=== PATIENT | male | born 1975 | race Caucasian/White ===

== ENCOUNTER 2016-11-11 20:12 | Inpatient (IN) | payer MEDICARE, MEDICAID ==
[~2016-11-11] VITALS: Ht 188 cm; Wt 77.9 kg
--- NOTE | ~2016-11-11 | HP ---
PATIENT'S NAME: MAUDE VALENZUELA [facility] AGE: 41 Y [address] ROOM: [place] [address] LOCATION: GPCU ADMIT DATE: 11/11/2016 History & Physical DISCHARGE DATE: FAMILY PHYSICIAN: Jian Marte MD ATTENDING PHYSICIAN: Andrzej Driver CHIEF COMPLAINT: Shortness of breath. HISTORY OF PRESENT ILLNESS: The patient is a 41-year-old quadriplegic who [facility] with complaints of respiratory illness and difficulty with lying back due to shortness of breath. Has been sleeping upright in his wheelchair for the last 3-4 nights. He did present to the clinic yesterday and was diagnosed with respiratory infection, was given Levaquin and albuterol nebulizers. He normally does not have respiratory problems, more urinary symptoms. PAST SURGICAL HISTORY: Includes bladder surgery, neck surgery, temporary tracheostomy. He is a quadriplegic secondary to a wrestling accident in his teenage years. CURRENT MEDICATIONS: Include baclofen 10 mg t.i.d., calcium 500 mg 1 tablet daily, cranberry 400 mg daily, Ditropan XL 500 mg twice daily, Macrodantin 25 mg 2 capsules daily, multivitamin daily, vitamin C 500 mg daily, vitamin E 1000 units daily. ALLERGIES: NO KNOWN MEDICAL ALLERGIES. FAMILY HISTORY: Not significant. SOCIAL HISTORY: Occasional alcohol use. Does drink some caffeine. He is a 2-year college graduate. He is single. REVIEW OF SYSTEMS: CONSTITUTIONAL: Denies any fever or chills. HEENT: He has occasional cough. CARDIOVASCULAR: He is dyspneic and short of breath when lying back, but sitting up does okay and does have a cough. GI: No nausea, vomiting, diarrhea. PHYSICAL EXAMINATION: VITAL SIGNS: Blood pressure 141/75, pulse of 89, respirations 24, O2 saturation 95% on room air, temperature 97.7. GENERAL: This is an alert male in no acute distress. On my exam, he is actually able to lean back in his wheelchair a little bit more than he did PATIENT'S NAME: MAUDE VALENZUELA [facility] AGE: 41 Y [address] ROOM: [place] [address] LOCATION: GPCU ADMIT DATE: 11/11/2016 History & Physical DISCHARGE DATE: FAMILY PHYSICIAN: Jian Marte MD ATTENDING PHYSICIAN: Andrzej Driver earlier since the steroids have been given. HEENT: Mouth had moist mucous membranes. NECK: Supple with no lymphadenopathy. HEART: Regular. A questionable murmur and extra click. LUNGS: Decreased air movement and breath sounds throughout, does have occasional wheeze. : Exam is not done. EXTREMITIES: Have minimal edema. SKIN: Again, the patient was examined in his chair, so I did not examine his skin. DIAGNOSTIC DATA: EKG does show a sinus rhythm, questionable some T-wave changes laterally. Serial EKGs were done which continued showing these changed. It was faxed to Dr. Tyler who feels like there is some nonspecific T-wave changes, but nothing acute at this point. CBC: White count of 4300 with a normal differential. Lactate of 1.1. D- dimer of 0.21. CPK of 255, CK-MB 12.9, troponin I less than 0.04. ProBNP of 49. CMS with a sodium of 128. The rest is stable. Procalcitonin less than 0.05. Repeat CK-MB was 11.8 and troponin I remained negative. ASSESSMENT: 1. Increased shortness of breath. 2. Elevated CPK. 3. Quadriplegic. PLAN: We will admit the patient on telemetry. Dr. Carvalho has been consulted. We will repeat cardiac enzymes serially. Echocardiogram has been done in the emergency room and awaiting complete results. We will continue with IV Solu- Medrol as this did seem to help his symptoms. We will also continue with IV Levaquin as this was started as an outpatient and with increased sputum production may be infectious. All of the labs were stable. Dr. Marte to resume care in the morning. ANDRZEJ DRIVER MD DMM/modl PATIENT'S NAME: MAUDE VALENZUELA [facility] AGE: 41 Y [address] ROOM: [place] [address] LOCATION: GPCU ADMIT DATE: 11/11/2016 History & Physical DISCHARGE DATE: FAMILY PHYSICIAN: Jian Marte MD ATTENDING PHYSICIAN: Andrzej Driver /[id number] D: [id number] T: [id number] HISTORY & PHYSICAL
--- NOTE | ~2016-11-11 | CON ---
PATIENT'S NAME: MAUDE VALENZUELA [facility] AGE: 41 Y [address] ROOM: [id number] [place] [id number] LOCATION: GPCU ADMIT DATE: 11/13/2016 Consultation DISCHARGE DATE: 11/21/2016 FAMILY PHYSICIAN: Jian Marte MD ATTENDING PHYSICIAN: Jian Marte DATE OF CONSULTATION: 11/13/2016 REFERRING PHYSICIAN: Ling Rhodes MD INDICATION: History of trach with acute respiratory failure. HISTORY OF PRESENT ILLNESS: This is a 41-year-old male, admitted for increased shortness of breath. He reports it initially started with nasal congestion and drainage last on November 08 and progressed to worsening shortness of breath. He was unable to lie flat during sleep and had occasional cough if sitting up. It is somewhat wet, but he is not able to cough anything up currently. He denies any wheezing or hemoptysis. He has no history of asthma. He does have history of wrestling accident in 1992, leaving him a quadriplegic. He developed pneumonia, requiring a trach during that hospitalization for 2 months. He has no other history of lung issues since then. Overall, he has had pneumonia 5 times in his lifetime. He averages one cold year and at that time he uses a nebulizer. He has no history of allergies, seasonal allergies, excessive daytime sleepiness, fatigue, or tobacco use. Upon his admission, he was started on Levaquin, IV steroids, and albuterol nebulizers. Today, he reports that he is feeling better and really likes the albuterol treatments. He is a little wheezy since his admission he reports. Due to his paralysis, he has an easier time coughing when he is sitting up in the chair and feels that his cough could be productive at this point if he was out of bed. He denies any fevers, chills, nausea, or vomiting. PAST MEDICAL HISTORY: 1. Wrestling accident causing quadriplegia. 2. Neurogenic bladder. 3. History of temporary trach during hospitalization for wrestling accident. ALLERGIES: SEE MAR. MEDICATIONS: See MAR. FAMILY HISTORY: No family history of lung disease or cardiac disease. PATIENT'S NAME: MAUDE VALENZUELA [facility] AGE: 41 Y [address] ROOM: [id number] [place], [place] [address] LOCATION: GPCU ADMIT DATE: 11/13/2016 Consultation DISCHARGE DATE: 11/21/2016 FAMILY PHYSICIAN: Jian Marte MD ATTENDING PHYSICIAN: Jian Marte SOCIAL HISTORY: The patient lives with his mother, who is his manager port. He denies any history of tobacco or alcohol use. REVIEW OF SYSTEMS: A 12-point review of systems is negative except as noted in the HPI. PHYSICAL EXAMINATION: VITAL SIGNS: Blood pressure 190/101, pulse 98, respirations 20, temperature 97.7, he is 92% on 2 L nasal cannula. GENERAL: This is a well developed, well nourished, 41-year-old male, who appears in no acute distress at the time of exam. HEENT: Head: Normocephalic and atraumatic. Eyes: Clear. NECK: Supple. No adenopathy. No carotid bruits or JVD. LUNGS: Clear throughout bilaterally with a few rales at the bases. HEART: Regular rate and rhythm without murmur, gallop, or rub. ABDOMEN: Soft, nontender, and nondistended. Bowel sounds x4. EXTREMITIES: No cyanosis, clubbing, or edema. DIAGNOSTIC DATA: Lactate 1.1. ProBNP 44. Blood cultures no growth to date. Hemoglobin A1c is 5. Sodium 131, potassium 4.3, BUN 6, and creatinine 0.5. WBC 4.3, hemoglobin 13.6, hematocrit 38.9, and platelets 184. Procalcitonin less than 0.05. Chest x-ray shows mild scoliosis, but no CHF or pneumonia. ASSESSMENT: 1. Acute respiratory failure secondary to upper respiratory infection. 2. Bronchitis, seems to be improving with antibiotics, steroids, and albuterol treatments. 3. History of trach secondary to pneumonia. 4. Bicuspid aortic valve. 5. Quadriplegic. 6. Mild scoliosis. PLAN: Continue with antibiotics, steroids, and albuterol treatments. We will consider changing steroids to p.o. and taper in the next 24 hours or so if he continues to remain stable. Push incentive spirometer and wean oxygen as able. Consider sputum culture if he develops fevers or has increased O2 needs. Thank you for the consult and opportunity to participate in the patient's care. PATIENT'S NAME: MAUDE VALENZUELA [facility] AGE: 41 Y [address] ROOM: [address] [address] LOCATION: [facility] ADMIT DATE: 11/13/2016 Consultation DISCHARGE DATE: 11/21/2016 FAMILY PHYSICIAN: Jian Marte MD ATTENDING PHYSICIAN: Jian Marte VARUN ROBLEDO APRN FOR MD SILVIA BYRNE/modl /[id number] d: 01/14/17 1806 t: 01/16/17 0741, CONSULTATION REPORT
--- NOTE | ~2016-11-11 | DS ---
PATIENT'S NAME: MAUDE VALENZUELA [facility] AGE: 41 Y [address] ROOM: [place] [address] LOCATION: GPCU ADMIT DATE: 11/13/2016 Discharge Summary DISCHARGE DATE: 11/21/2016 FAMILY PHYSICIAN: Jian Marte MD ATTENDING PHYSICIAN: Anastasiia Rivera DISCHARGE DIAGNOSES: 1. Bronchitis with hypoxia. 2. Pulmonary edema. 3. Anxiety. 4. Hypertension. 5. Hyponatremia. 6. Urinary incontinence with indwelling catheter. 7. Constipation. 8. Quadriplegia. 9. Pressure ulcer, coccyx, stage I. CONSULTS DURING ADMISSION: 1. Dr. Kiran, Pulmonology. 2. Wound Care. 3. Urology. PROCEDURES DURING ADMISSION: Replace urinary catheter. HOSPITAL COURSE: The patient is a 41-year-old, who was admitted for hypoxia and upper respiratory issues. Physician Obstetrician consulted. He was put on breathing treatments and Levaquin. The patient had anxiety, which was treated with p.r.n. Ativan. The patient's constipation remained controlled during his hospital stay as did his hypertension. The patient has an indwelling urinary catheter, which was replaced by Urology on the 20 of November. Following the day of discharge, the patient was no longer requiring oxygen day or night. The patient's sodium remained stable and was within normal limits on the day of discharge of 135. The patient was also noted on admission to start developing a pressure ulcer and Wound Care was consulted and the pressure ulcer did well and did not progress. DISCHARGE CONDITION: Stable. DISPOSITION: Home. DISCHARGE MEDICATIONS: Please see list. DISCHARGE INSTRUCTIONS: The patient is to follow up with Dr. Marte in 2 weeks and with Pulmonology in one month. He is to continue to do the DuoNebs at home and other medications as directed. Any concerns, contact clinic. PATIENT'S NAME: MAUDE VALENZUELA [facility] AGE: 41 Y [address] ROOM: [place] [address] LOCATION: GPCU ADMIT DATE: 11/13/2016 Discharge Summary DISCHARGE DATE: 11/21/2016 FAMILY PHYSICIAN: Jian Marte MD ATTENDING PHYSICIAN: Anastasiia Rivera MD ANALIA MCALLISTER/krista /[id number] d: 11/22/16220 t: 11/22/16 0803, DISCHARGE SUMMARY
--- NOTE | ~2016-11-11 | CON ---
PATIENT'S NAME: MAUDE VALENZUELA [facility] AGE: 41 Y [address] ROOM: [place] [address] [facility]: [facility] ADMIT DATE: 11/13/2016 Consultation DISCHARGE DATE: FAMILY PHYSICIAN: Jian Marte MD ATTENDING PHYSICIAN: Anastasiia Rivera DATE OF CONSULTATION: 11/12/2016 REFERRING PHYSICIAN: ESSIE TRUJILLO MD CARDIOLOGY CONSULTATION REASON FOR CARDIOLOGY CONSULTATION: Elevated cardiac enzymes. HISTORY OF PRESENT ILLNESS: This is a 41-year-old male admitted with some shortness of breath, and cough. He noted the symptoms to be worse when he was lying flat. He has a previous history of quadriplegia, since a wrestling accident at the age of 17. When questioned about his shortness of breath symptoms, he states they are very similar to previous bouts of pneumonia. This consult was requested due to elevated CK-MB as well as EKG changes. His EKG shows some Q-waves in V5 and V6 as well as some left ventricular hypertrophy. His echocardiogram shows a normal left ventricular contractility as well as a bicuspid appearing aortic valve. At the time of this consult, he is breathing better and is able to lay flat. He has been given IV steroids as well as antibiotics and nebulizer breathing treatments. There is no family history of coronary artery disease. He has no complaints of chest pain, dizziness, syncope, palpitations, nausea, vomiting, diarrhea, or edema. PAST MEDICAL HISTORY: 1. Wrestling accident causing quadriplegia. 2. Neurogenic bladder. 3. Temporary tracheostomy. FAMILY HISTORY: No noted family history of cardiovascular disease. SOCIAL HISTORY: The patient denies tobacco use. He also denies illicit drug use. He does admit to occasional alcohol use. CURRENT MEDICATIONS: 1. Albuterol sulfate inhaled twice daily. 2. Levaquin 500 mg IV every night. 3. Solu-Medrol 80 mg IV every 8 hours. 4. Lioresal 10 mg p.o. 3 times daily. 5. Macrodantin 50 mg p.o. daily in the evening. PATIENT'S NAME: MAUDE VALENZUELA [facility] AGE: 41 Y [address] ROOM: [place] [address] LOCATION: GPCU ADMIT DATE: 11/13/2016 Consultation DISCHARGE DATE: FAMILY PHYSICIAN: Jian Marte MD ATTENDING PHYSICIAN: Ansatasiia Rivera 6. Os-Talon Plus D 500 mg p.o. daily in the evening. 7. [place] 20 mg p.o. twice daily. 8. Multivitamin 1 tablet p.o. daily in the evening. 9. Vitamin C 500 mg p.o. daily in the evening. 10. Vitamin E 800 units p.o. daily in the evening. 11. Dulcolax 20 mg rectally every 48 hours. MEDICATION ALLERGIES: No known medication allergies. REVIEW OF SYSTEMS: A 12-point review of systems evaluated and negative except for those listed in the HPI. LABORATORY AND IMAGING DATA: Diagnostics: CMS evaluation shows a sodium of 131, potassium 4.3, BUN of 6, creatinine 0.5, and a glucose of 133. Cardiac enzyme trend shows a CPK of 255, then 234, and then 181. CK-MB of 12.9, then 11.8, then 10, and a troponin I of less than 0.04 x3 values. PHYSICAL EXAMINATION: VITAL SIGNS: Temperature 97.9, pulse 99, respirations 14, blood pressure 127/69, and O2 saturation 91% on 2 L nasal cannula. The patient weighs 85 kg. SKIN: Doctor Phillips, warm, and dry. EYES: Sclerae clear. No xanthelasmas. ENT: Oral mucosa is pink and moist. NECK: No jugular venous distention or carotid bruits. CHEST: Respirations are even and unlabored. Does have some noted rhonchi. HEART: Regular rate and rhythm. Normal S1 and S2. Does have the presence of an S4. ABDOMEN: Soft and nontender. MUSCULOSKELETAL: Does not move his 4 extremities spontaneously. He is able to do fine motor finger movements which allows him to use a motorized wheelchair. EXTREMITIES: Peripheral pulses palpable. No clubbing or cyanosis noted. Does have very minimal lower extremity edema present. PSYCHIATRIC: Alert and oriented. Mood and affect are appropriate. IMPRESSION AND PLAN: Per Dr. Mccollum: 1. Elevated cardiac enzymes. He has no acute ST changes noted on his EKG and no complaints of chest pain. His shortness of breath has improved once again with steroids, antibiotics, and nebulizers. Unlikely to be acute coronary syndrome. His CK-MB can be elevated with respiratory distress from the intercostal muscles and with his negative troponins, it PATIENT'S NAME: MAUDE VALENZUELA [facility] AGE: 41 Y [address] ROOM: [id number] [place], [place] [address] [facility] ADMIT DATE: 11/13/2016 Consultation DISCHARGE DATE: FAMILY PHYSICIAN: Jian Marte MD ATTENDING PHYSICIAN: Anastasiia Rivera is unlikely once again to be acute coronary syndrome. He also has a noted normal BNP, which is unlikely to be a sign of congestive heart failure. Of note, he does have a probable bicuspid aortic valve, but has no aortopathy noted on his echocardiogram. We will continue to monitor, evaluate, and treat as appropriate. Thank you for this consult. Thank you for allowing [facility] to interact in the care of this patient. GREG IQBAL APRN FOR MIKAELA-MD ELAN SCHNEIDER/modl /[id number] d: 11/13/161814 t: 11/30/16 0909, CONSULTATION REPORT
--- NOTE | ~2016-11-11 | ECHO ---
Transthoracic Echocardiography Report (TTE) Demographics Patient Name MAUDE VALENZUELA Date of Study 11/11/2016 Patient Number [id number] Visit Number [id number] Date of 1975 Room Number G[address]14 Accession Number [id number] Gender Male Age 41 year(s) Referring Castillo Mccormick MD Miner Assistant Nisreen Degroot RDCS, Physician Castillo Tripathi RVT Physician Interpreting Carmelo Dubon Quill Skinner Physician MD Supervising Ordering Physician Castillo Mccormick MD, MD/MLP Nurse Stress Continuous Linter Drier Operator Conclusions Contractility Score Summary Normal Left Ventricular contractility was noted. Summary Technically difficult exam due to patient immobility and reclined in chair. Moderate concentric left ventricular hypertrophy. There is mild to moderate aortic regurgitation by color Doppler. The aortic valve appears to be bicuspid. Trivial posterior pericardial effusion. Procedure Type of Study TTE procedure:Echo Limited w/o Contrast. Procedure Date Date: 11/11/2016 Start: 10:57 PM Study Location: ER Technical Quality: Limited visualization due to patient immobility. Indications:Shortness of breath. Appropriate Use Criteria: 9 Patient Status: STAT HR: 81 bpm M-Mode/2D Measurements LV Diastolic Dimension: 4.44 cm LV Systolic Dimension: 2.68 cm LV Septum Diastolic: 1.44 cm LV PW Diastolic: 1.37 cm AO Root Dimension: 2.7 cm Cardiac Output: 7.54 l/min LA Dimension: 1.8 cm RV Diastolic Dimension: 2.35 cm LVOT: 2.4 cm LVOT VTI: 20.6 cm LV Stroke volume: 93.14 ml Doppler Measurements AV Peak Velocity: 1.47 m/s AV Peak Gradient: 8.64 mmHg AV Mean Gradient: 5 mmHg LVOT Peak Velocity: 1.04 m/s AV P1/2t: 821 msec PV Peak Gradient: 5.2 mmHg Findings Left Ventricle Moderate concentric left ventricular hypertrophy. Left Atrium Normal left atrial size. Right Atrium IVC imaging is consisente with normal RA pressure. Aortic Valve There is mild to moderate aortic regurgitation by color Doppler. The aortic valve appears to be bicuspid. Tricuspid Valve No tricuspid regurgitation by color Doppler. Pulmonic Valve Normal pulmonic valve structure and function. Trivial pulmonic valve regurgitation by color Doppler. Pericardial Effusion Trivial posterior pericardial effusion. Miscellaneous Visualized portions of the aortic root and ascending aorta appear normal in size. Pleural Effusion No evidence of pleural effusion. Contractility Score LV regional wall motion:(0-Non visualized 1-Normal 2-Hypokinesis 3-Akinesis 4-Dyskinesis 5-Aneurysm) Signature dtt: ESSIE TRUJILLO dtd: 11/11/16 1557 Physician Self Edit
--- NOTE | ~2016-11-11 | ER ---
PATIENT'S NAME: MAUDE VALENZUELA [facility] AGE: 41 Y [address] ROOM: [place] [id number] LOCATION: GPCU ADMIT DATE: 11/11/2016 ER/Outpatient Report DISCHARGE DATE: FAMILY PHYSICIAN: Jian Marte MD ATTENDING PHYSICIAN: Anastasiia Rivera Time of Arrival: 2011 hours. Time of Evaluation: 2021. IDENTIFICATION: A 41-year-old male. CHIEF COMPLAINT: Shortness of breath. HISTORY OF PRESENT ILLNESS: The patient is a 41-year-old male who has had shortness of breath with lying down, for the last 3 nights, unable to sleep. He has had a cough productive of thick sputum, fever and chills. He was seen in the clinic yesterday and treated with Levaquin and albuterol. The patient denies any chest pain. No abdominal pain. No nausea or vomiting. No other problems or concerns. PAST MEDICAL HISTORY: ALLERGIES: NO KNOWN DRUG ALLERGIES. CURRENT MEDICATIONS: Ditropan, baclofen, Macrodantin, Levaquin and albuterol. MEDICAL PROBLEMS: Cervical spine injury with sustained fracture in 1992 and residual quadriplegia, history of kidney stones. PRIOR SURGERIES: Cervical spine fusion, suprapubic cystoscopy. SOCIAL HISTORY: The patient lives in [place] with his family. Tobacco use, denies. Alcohol use, denies. Drug use, denies. REVIEW OF SYSTEMS: All systems reviewed and negative other than what is noted in the HPI. PHYSICAL EXAMINATION: VITAL SIGNS: Height 77.2 kg. Blood pressure 141/75, pulse 89, respirations 24, temperature 97.9, sats 95% on room air. He did drop down to 91-92%, so we PATIENT'S NAME: VALEN[facility]UELAMAUDE [facility] AGE: 41 Y [address] ROOM: [place] [id number] LOCATION: GPCU ADMIT DATE: 11/11/2016 ER/Outpatient Report DISCHARGE DATE: FAMILY PHYSICIAN: Jian Marte MD ATTENDING PHYSICIAN: Anastasiia Rivera placed him on O2 2 L per nasal cannula. HEENT: Normocephalic, atraumatic. Ears: TMs translucent AU. Eyes: Pupils equal and reactive to light and accommodation. Extraocular movements intact. Nose: Mucosa pink. No lesions. Mouth: No lesions. Pharynx benign. NECK: Supple. No lymphadenopathy. LUNGS: Clear to auscultation. Diminished breath sounds throughout with few scattered wheezes. HEART: Regular rate and rhythm. No murmur, rub, or gallop. ABDOMEN: Bowel sounds present. Soft, nondistended. No hepatosplenomegaly. No palpable masses. Nontender. SKIN: Mar-Mac, warm, and dry. No lesions or rashes noted. NEURO: The patient is alert and oriented x4. He is quadriplegic with no focal deficit. IMAGING: Initial EKG at 2041, normal sinus rhythm at 86 beats per minute. Left ventricular hypertrophy. Peaked T-waves throughout and early repolarization. Repeat EKG at 2238, normal sinus rhythm at 80 beats per minute. Peak T-waves with early repolarization. No significant change when compared to prior EKG at 2041. Dr. Carvalho reviewed the EKGs and agreed with the repolarization. Procalcitonin less than 0.05. Sodium low 128, no history of hyponatremia. Potassium 3.8, chloride 94, CO2 23, BUN 5, creatinine 0.3, blood sugar 91. Liver enzymes normal. CPK 255, CK-MB 12.9, troponin I less than 0.040. ProBNP 49. D-dimer 0.21, lactate 1.1. Hemoglobin 13.6, hematocrit 38.9, and platelets 184. White count 4.3 with a normal differential. Repeat cardiac enzymes; CK-MB 11.8. Troponin I normal. Chest x-ray, no definite infiltrate. Pending Radiology over-read. Echo, no significant effusion and no major wall motion abnormalities per Dr. Carvalho. IMPRESSION: 1. Shortness of breath. 2. Elevated CPK-MB. PLAN: The patient was given an albuterol aerosol treatment here, Solu-Medrol 80 mg IV and will be admitted per Dr. Anastasiia Rivera for Dr. Marte with Dr. Carvalho providing consultation. Dr. Rivera evaluated the patient in the emergency room. Dr. Carvalho was contacted by telephone. PATIENT'S NAME: MAUDE VALENZUELA [facility] AGE: 41 Y [address] ROOM: [place] [address] LOCATION: GPCU ADMIT DATE: 11/11/2016 ER/Outpatient Report DISCHARGE DATE: FAMILY PHYSICIAN: Jian Marte MD ATTENDING PHYSICIAN: Anastasiia Rivera MD DUSTY PEÑALOZA/modl /[id number] d: 11/12/16 0440 t: 11/14/16 0856, OUTPATIENT REPORT
--- NOTE | ~2016-11-11 | PUL ---
PATIENT'S NAME: MAUDE VALENZUELA [facility] AGE: 41 Y [address] ROOM: [address] [address] LOCATION: GPCU ADMIT DATE: 11/13/2016 Pulmonary DISCHARGE DATE: 11/21/2016 FAMILY PHYSICIAN: Jian Marte MD ATTENDING PHYSICIAN: Anastasiia Rivera NAME OF PROCEDURE: Overnight Pulse Oximetry DATE OF PROCEDURE: November 20 to November 21, 2016 REASON FOR EXAM: Nocturnal hypoxemia RESULTS: The test was performed on room air. The recording time and total valid sampling time were 9 hours, 6 minutes, and 24 seconds. The highest pulse was 114, lowest pulse was 69, with a mean pulse of 86. The highest SpO2 was 97%, the lowest SpO2 was 85%, with a mean SpO2 of 92%. The patient spent 5 minutes with SpO2 less than 89%, representing 0.9% of the total sleep time. The desaturation event index was 4.2. PHYSICIAN INTERPRETATION: The patient does not have evidence of significant nocturnal hypoxia and would not qualify for supplemental oxygen as per Medicare criteria. MD LELE BYRNE/cyrus /[id number] dtt: 11/22/16 1524 , PERLA SOTO dtd: 11/22/16 1451
[~2016-11-11 20:12] MED LIST: ASCORBIC ACID500 MG PO; CRANBERRY400 M1 PO; DITROPAN5 MG PO; LIORESAL DS20 MG PO; MACRODANTIN *IA50 MG PO; MYCOSTATIN(NYST15 GM TOP; OSCAL + D500 MG PO; THERAGRAN-M1 TAB PO; VITAMIN E1000 UNI1 PO
[2016-11-11 21:07] LABS: BASOPHIL % 0.2 %; EOSINOPHIL # 0.1 K/uL (0.0-0.5); EOSINOPHIL % 3.2 %; HEMATOCRIT 38.9 % (37.0-53.0); HEMOGLOBIN 13.6 g/dL (12.0-17.0); IMMATURE GRANULOCYTE % 0.2 %; LYMPHOCYTE # 1.2 K/uL (0.8-4.0); LYMPHOCYTE % 27.4 %; MCH 28.5 pg (27.0-34.0); MCV 81.6 fl (83.0-98.0); MONOCYTE # 0.4 K/uL (0.0-1.0); MONOCYTE % 10.1 %; MPV 9.3 fl (9.4-12.4); NEUTROPHIL # (ANC) 2.6 K/uL (1.4-9.0); NEUTROPHIL % 58.9 %; NRBC % 0 /100WBC (0-0.00); PLATELET COUNT 184 K/uL (150-450); RBC 4.77 M/uL (4.00-6.00); RDW-CV 13.6 % (11.9-14.6); WBC 4.3 K/uL (4.0-11.0)
[2016-11-11 21:27] LABS: ALBUMIN 3.5 gm/dL (3.5-5.0); ALK PHOS 89 IU/L (33-138); ALT 40 IU/L (12-78); ANION GAP 14.8 (10.0-19.0); AST 29 IU/L (10-40); BLOOD UREA NITROGEN 5 mg/dL (6-24); CALCIUM 8.6 mg/dL (8.5-10.5); CHLORIDE 94 mMol/L (96-110); CO2 23 mMol/L (22-32); CPK 255 IU/L (35-332); CREATININE 0.3 mg/dL (0.6-1.3); ESTIMATED GFR (MDRD EQUATION) > 60; POTASSIUM 3.8 mMol/L (3.7-5.1); SODIUM 128 mMol/L (135-145); TOTAL BILIRUBIN 0.6 mg/dL (0.0-1.5); TOTAL PROTEIN 7.5 g/dL (6.0-8.4)
[2016-11-11 23:07] LABS: CPK 234 IU/L (35-332)
[2016-11-12] MEDS ORDERED: ALBUTEROL2.5 MG/0.5 INH (00:50)
[2016-11-12] MEDS ORDERED: LEVAQUIN750 MG PO (00:54)
[2016-11-12] MEDS ORDERED: PHENERGAN-DM120 ML PO (00:57)
[2016-11-12 05:16] LABS: ANION GAP 13.3 (10.0-19.0); BLOOD UREA NITROGEN 6 mg/dL (6-24); CALCIUM 8.4 mg/dL (8.5-10.5); CHLORIDE 97 mMol/L (96-110); CO2 25 mMol/L (22-32); POTASSIUM 4.3 mMol/L (3.7-5.1); SODIUM 131 mMol/L (135-145)
[2016-11-12 05:17] LABS: CREATININE 0.5 mg/dL (0.6-1.3); ESTIMATED GFR (MDRD EQUATION) > 60
[2016-11-12 05:20] LABS: CPK 181 IU/L (35-332)
--- NOTE | 2016-11-12 08:01 | NUR ---
0015: PT ADMITTED FROM ER AFTER HAVING INCREASED SOB OVER THE LAST FEW DAYS. HE GOT TO THE POINT HE COULD NOT LAY DOWN. HE WENT TO THE DR. 2 DAYS AGO. HE HAD AN EKG AND ECHO DONE IN ER. THE EKG READ "ACUTE CA". CK-MB WAS ALSO ELEVATED. DR. MIRZA WAS CONSULTED. PT DENIED CP. A NEBULIZER TREATMENT AND SOLUMEDROL WAS GIVEN IN ER. PT IS A&O X3. HIS MOTHER IS WITH HIM. PT DOES STATE HE DRINKS ABOUT A GALLON OF WATER EVERY DAY. PT DOES HAVE A SUPRAPUBIC CATH THAT IS PUTTING OUT LARGE AMOUNTS OF URINE. CURRENTLY ON 2L O2.
--- NOTE | 2016-11-12 08:31 | NUR ---
Significant Event: SEE ADMISSION NOTE. PT CONTINUED ON 2L PER NC. HE DID GET INTO BED FROM HIS WHEELCHAIR BY THE LIFT. HE REFUSED TO TURN ONTO HIS SIDE UNTIL ABOUT 0500. HIS SOB WAS IMPROVED EXCEPT WHEN HE LAYED FLAT. HE BECAME VERY ANXIOUS AND WANTED TO SIT BACK UP. HIS MOM REMAINED WITH HIM ALL NIGHT. DENIED CHEST PAIN ALL NIGHT. Follow up:
--- NOTE | 2016-11-12 12:48 | NUR ---
Introduced self and role of care management to patient and his mother. He lives in [place] with his mother. He states that he is able to do some of his ADL's. His mother assists as needed. He is w/c bound. They did inquire abour how to get a new nebulizer machine as his is 26 years old and not working right. I did place a note on the chart for dr to write a script for a new neb machine on discharge. They plan on patient returning home on discharge. They deny any other needs at this time. Will continue to follow.
--- NOTE | 2016-11-12 15:29 | NUR ---
Significant Event: A/O. VSS on 2L/NC. Denies pain. Repo q2h. Isaiah to CODI. IVF dc'd, taking PO well. Family at bedside. Follow up:
--- NOTE | 2016-11-13 05:07 | NUR ---
SIGNIFICANT EVENT: A/O. VSS ON 2L NC. DID HAVE SOME COMPLAINTS OF SOB BUT WAS ABLE TO RECOVER AFTER RESTING AWHILE. NO C/O PAIN. BROOKS INTACT WITH 2600ML UOP. TURN EVERY 2 HOURS. SUPPOSITORY GIVEN LAST NIGHT WITH RESULTS. MOM AT BEDSIDE AND HELPFUL WITH CARES.
[2016-11-13 18:05] LABS: BICARBONATE 27.7 mmol/L (18.0-23.0); PCO2 38 mmHg (35-45); PO2 50 mmHg (80-90)
--- NOTE | 2016-11-13 19:08 | NUR ---
Significant Event:Patient A/O x 3, hypertensive intermittently. Patient c/o increased SOB and labored breathing. Neb tx and repositioning with patient up to WC helpful for a short period of time, pulmonology notified. O2 increased to 4L NC. Afebrile, denies pain. Does get anxious and overstimulated quickly with activity and with staff repositioning. Follow up:
[2016-11-14 03:49] LABS: ANION GAP 14.1 (10.0-19.0); BLOOD UREA NITROGEN 10 mg/dL (6-24); CALCIUM 8.9 mg/dL (8.5-10.5); CHLORIDE 95 mMol/L (96-110); CO2 27 mMol/L (22-32); CREATININE 0.4 mg/dL (0.6-1.3); ESTIMATED GFR (MDRD EQUATION) > 60; POTASSIUM 4.1 mMol/L (3.7-5.1); SODIUM 132 mMol/L (135-145)
--- NOTE | 2016-11-14 04:39 | NUR ---
Significant Event: A/O X 3. TURNED Q2 AND PER PATIENT REQUEST. SBP'S HAVE RANGED FROM 1'TEENS TO 180'S, THEY TEND TO FLUCTUATE. 1 HOUR AFTER SBP OF 180 A RETAKE WITH NO MEDS GIVEN GAVE A BP OF 137/70. THE PATIENT CAN GET AGITATED AND ANXIOUS AT TIMES WHICH TEND TO PLAY A ROLE. HR HAVE BEEN IN THE 80-90'S. 02 TITRATED DOWN TO 3L, LUNGS REMAIN COARSE. GAVE AN ADDITIONAL 40 MG LASIX. TOTAL UOP DURING SHIFT 4,675 ML. PAIN ALLEVIATED BY REPOSITIONING. NEED TO ENCOURAGE FLUTTER VALVE AND I/S. Follow up:
--- NOTE | 2016-11-14 16:07 | NUR ---
Significant Event: PATIENT IS A QUADRAPLEGIC. ABLE TO MOVE BOTH ARMS, BUT NO FINE MOTOR USE OF FINGERS. TOTAL CARES. HAS AXIETY, GIVEN 1 MG IV ATIVAN WITH NOTED RELIEF. PATIENT STATED HE FELT SO MUCH BETTER AND CALM. UP IN PT'S OWN CHAIR WITH ASSIST OF MOTHER, WHO TAKES CARE OF HIM AT HOME. A/O X 3. CONT. WITH WEAK COUGH, ABLE TO BRING SM. AMT. THICK WHITE PHEGLM UP AT TIMES. MOTHER AT BEDSIDE. AFEBRILE. HR SR 98-103. DENIES PAIN. BREATHING TX'S Q 4 HOURS PRN. USES INCENTIVE SPIROMETER AND FLUTTER VALVE OFTEN. 02 ON AT 3 LPM, SATS 92-94%. INITIATED MUCINEX LIQUID. GIVEN IV LASIX WITH GOOD URINE OUTPUT. HAS OPEN SORE LT. CREASE OF BUTTOCK. ALOE VESTA TODAY. Follow up: CONT. TO TAMI RESP. STATUS.
--- NOTE | 2016-11-15 03:49 | NUR ---
Significant Event: A/0 X 3, TURNED Q2 HOURS AND PER PATIENT REQUEST. SBP'S 1'TEENS TO 130'S, HR 80'S TO 90'S. AFBRILE. 02 REMAINS AT 3L, LUNGS SOUND MUCH BETTER TODAY, JUST SOME WHEEZES, NO COARSENESS NOTED. PATIENT HAS BEEN IN GOOD SPIRITS TODAY AND IS DOING MUCH BETTER. NO AGITATION AND HE HAS RESTED VERY WELL ALL EVENING WITH MOTHER AT BEDSIDE. BROOKS 2,800 UOP. HE HAS HAD NO COMPLAINTS OF PAIN OR SHORTNESS OF BREATH. Follow up: CONTINUE TO MONITOR RESPIRATORY STATUS.
[2016-11-15 04:22] LABS: ANION GAP 12.3 (10.0-19.0); BLOOD UREA NITROGEN 12 mg/dL (6-24); CALCIUM 8.7 mg/dL (8.5-10.5); CHLORIDE 96 mMol/L (96-110); CO2 28 mMol/L (22-32); CREATININE 0.5 mg/dL (0.6-1.3); ESTIMATED GFR (MDRD EQUATION) > 60; POTASSIUM 4.3 mMol/L (3.7-5.1); SODIUM 132 mMol/L (135-145)
--- NOTE | 2016-11-15 19:15 | NUR ---
Significant Event: A/O X 3. FEELING MUCH BETTER. CONT. ON 3 LPM NC. SATS 94%. NO RESP. DISTRESS NOTE. AFEBRILE. HR SR IN 90-115. UP IN HIS OWN W/CHAIR. WATCHING TV. Follow up: CONT. TO MONITER RESP. STATUS.
--- NOTE | 2016-11-16 04:36 | NUR ---
Significant Event: Patient A/Ox3. VSS on 3L most of shift. Patient has needed help from RT with coughing several times this shift, but towards the end of the shift patien't oxygen demands increased and patient's lungs became more coarse and wheezey. RT worked with patient to help him cough and increased oxygen to 6L. Good UOP this shift. Follow Up: Continue to monitor respiratory status. Encourage use of IS, flutter and quad cough with RT.
[2016-11-16 06:23] LABS: ANION GAP 14.5 (10.0-19.0); BLOOD UREA NITROGEN 13 mg/dL (6-24); CALCIUM 8.4 mg/dL (8.5-10.5); CHLORIDE 92 mMol/L (96-110); CO2 27 mMol/L (22-32); CREATININE 0.4 mg/dL (0.6-1.3); ESTIMATED GFR (MDRD EQUATION) > 60; SODIUM 129 mMol/L (135-145)
[2016-11-16 06:28] LABS: POTASSIUM 4.5 mMol/L (3.7-5.1)
--- NOTE | 2016-11-16 14:13 | NUR ---
A - PT SCREENED D/T LOS. QUADRAPLEGIC. O/A BUTTOCK CREASE - WOC FOLLOWING. FLUID OVERLOAD. HT: 74" WT: 172# LABS: NA 129, GLU 108, BUN/CR 13/0.4 MEDS: SOLUMEDROL, MACRODANTIN, BOWEL/NAUSEA, LEVAQUIN DIET: REG. INTAKE: MOSTLY 75-100% NEEDS: 4029-0291 KCAL (25-30 KCAL/KG), 78-94 G PRO (1-1.2 G/KG), 2340 ML FLUID (30 ML/KG) D - INCREASED PRO NEEDS R/T HEALING AEB ALTERED SKIN INTEGRITY I - GOAL FOR INTAKE TO REMAIN MOSTLY 75-100% FOR DURATION OF STAY. GOAL FOR IMPROVED SKIN INTEGRITY. WILL ADD CECILLE BID TO INC PRO INTAKE FOR HEALING. M/E - WILL MONITOR INTAKE AND SKIN. F/U IN 4-5 DAYS.
--- NOTE | 2016-11-16 17:07 | NUR ---
Significant Event: A/O X 3. DENIES PAIN. ATIVAN IV X 1 TODAY. INITIATED FLONASE NASAL SPRAY. AFEBRILE. HR SR 90-102. SBP 133-172. LT. BUTTOCK CREASE STILL OPEN SORE, ALOE VESTA. PATIENT HAS BEEN OFF HIS BOTTOM ALL DAY TODAY. CT CHEST TODAY. MOTHER AT BEDSIDE. VERY HELPFUL. 02 AT 3 LPM, SATS 94%. NO RESP. DISTRESS NOTED. CONT. WITH BREATHING TX'S AND I.S. AND FLUTTER VALVE. Follow up: CONT. TO LUIS RESP. STATUS.
--- NOTE | 2016-11-17 04:29 | NUR ---
Significant Event: Patient A/Ox3. VSS on 3L. Patient's respiratory status has been much better tonight, but his lungs do get coarser throughout the night. Patient requested RT every hour or so for treatments or quad coughing. Patient gets very anxious. Ativan given x2. Robitussin given x1 which seemed to help patient cough more effectively. Patient's sats have remained stable all night, even when patient complained of feeling like he wasn't breathing enough. Follow Up: RT to work with this morning. Continue to monitor respiratory status. Encourage patient to get up in chair today.
[2016-11-17 04:51] LABS: ANION GAP 10.9 (10.0-19.0); BLOOD UREA NITROGEN 9 mg/dL (6-24); CALCIUM 7.9 mg/dL (8.5-10.5); CHLORIDE 90 mMol/L (96-110); CO2 27 mMol/L (22-32); CREATININE 0.4 mg/dL (0.6-1.3); ESTIMATED GFR (MDRD EQUATION) > 60; POTASSIUM 3.9 mMol/L (3.7-5.1); SODIUM 124 mMol/L (135-145)
--- NOTE | 2016-11-17 15:28 | NUR ---
Significant Event:Up in chair with lift. Patient tolerates well. Denies pain. O2 at 3L. LS coarse with small productive cough. Mother assist with cares and coughing. Ativan and Robitussin given at beginning of shift. Suprapubic cath intact with good output. VSS. No stool. Eating well. Right butt cheek sore looks better states mother. IV in right wrist. Encourage IS and flutter valve. Follow up:wean O2.
[2016-11-18 04:45] LABS: ANION GAP 12.9 (10.0-19.0); CALCIUM 8.5 mg/dL (8.5-10.5); CHLORIDE 91 mMol/L (96-110); CO2 27 mMol/L (22-32); CREATININE 0.3 mg/dL (0.6-1.3); ESTIMATED GFR (MDRD EQUATION) > 60; POTASSIUM 3.9 mMol/L (3.7-5.1); SODIUM 127 mMol/L (135-145)
[2016-11-18 04:46] LABS: BLOOD UREA NITROGEN 14 mg/dL (6-24)
--- NOTE | 2016-11-18 05:03 | NUR ---
SIGNIFICANT EVENT: A/O X 3. PATIENTS BREATHING SEEMED TO BECOME MORE COARSE THROUGHOUT THE NIGHT AND EACH TIME WE WOULD REPOSTION HIM IT SEEMED TO TAKE 30-45MIN FOR HIM TO RECOVER. OXYGEN PER NC TITRATED BETWEEN 3-4L TO KEEP SATS ABOVE 90%. REPOSTIONED SIDE TO SIDE EVERY 2 HOURS OR PER PATIENT REQUEST. ATIVAN AND ROBITUSSIN GIVEN AT HS PER PATIENT REQUEST.
--- NOTE | 2016-11-18 17:44 | NUR ---
PATIENT HAS BEEN IMPROVING THROUGHOUT DAY RESPIRATORY ZULETA. RECIEVE 40MG OF IV LASIX THIS AM. AND HAS DIURESED 3150 TODAY. PATIENT HAS BEEN UP IN CHAIR THIS AFTERNOON AND COUGHING UP ALOT OF MUCUS. HE STATES HE IS FEELING MUCH BETTER THIS AFTERNOON.
--- NOTE | 2016-11-18 23:29 | NUR ---
SIGNIFICANT EVENT: A/O X 3. LUNGS ARE COARSE WITH EXPIRATORY WHEEZES. PLACED PATIENT ON 2L NC DURING FIRST ASSESMENT FOR OXYGEN SATS IN THE 80'S. TURN OER PATIENTS REQUEST. CECILIA GUTIERREZ.
[2016-11-19 04:47] LABS: ANION GAP 15.4 (10.0-19.0); BLOOD UREA NITROGEN 16 mg/dL (6-24); CALCIUM 9.3 mg/dL (8.5-10.5); CHLORIDE 90 mMol/L (96-110); CO2 25 mMol/L (22-32); CREATININE 0.4 mg/dL (0.6-1.3); ESTIMATED GFR (MDRD EQUATION) > 60; POTASSIUM 3.4 mMol/L (3.7-5.1); SODIUM 127 mMol/L (135-145)
--- NOTE | 2016-11-19 06:05 | NUR ---
Significant Event: PT REPOSITIONED OFTEN. HE COULD NOT GET COMFORTABLE. HE DID FEEL SOB AT TIMES. HIS LUNGS ARE COURSE. HE STATES HE FEELS LIKE HIS LUNGS ARE TIGHT. HE COMPARED IT TO THE FEELING OF HOW IT WAS BEFORE THE LASIX WAS GIVEN YESTERDAY. O2 WAS INCREASED TO 3L PER NC. HIS SUPRAPUBIC REMAINS PATENT WITH 1150ML OUT. MOM REMAINS IN ROOM ALL NIGHT. Follow up:
--- NOTE | 2016-11-19 16:59 | NUR ---
Significant Event: PT ON 2LITERS MOST OF DAY. UP TO CHAIR PER LIFT PT GOT ALITTLE LT HEADED SBP WENT TO 80, HEAD LAYED BACK AND SBP CAME BACK UP. HRS TACHY 100 WHEN UP IN CHAIR. NO C/O PAIN, JUST WRINKLES OF LINEN BOTHER HIM. PT DRINKS GOOD TODAY, NO LASIX. PERCUSS TO BID. PT MOM HELPS ALOT WITH FEED/CARES. Follow up:
[2016-11-20 04:56] LABS: BLOOD UREA NITROGEN 15 mg/dL (6-24); CALCIUM 8.3 mg/dL (8.5-10.5); CHLORIDE 98 mMol/L (96-110); CO2 26 mMol/L (22-32); CREATININE 0.3 mg/dL (0.6-1.3); ESTIMATED GFR (MDRD EQUATION) > 60; SODIUM 132 mMol/L (135-145)
--- NOTE | 2016-11-20 05:13 | NUR ---
Significant Event: DENIES PAIN ALL NIGHT. REPOSITIONED PER REQUEST. 1 MG ATIVAN GIVEN AT HS. PT SLEPT WELL THE REST OF THE NIGHT. PT WEANED TO ROOM AIR. MOTHER REMAINS AT BEDSIDE ALL NIGHT. Follow up:
--- NOTE | 2016-11-20 15:51 | NUR ---
Significant Event: Patient quadriplegic and has been using full lift to get from bed to chair. Likes to be in his wheelchair all day long. A/O x 3. VSS on RA all day. Will have overnight trend oximetry tonight on RA. Lung sounds slightly coarse throughout. Continues on breathing treatments and CPT BID. Suprapubic catheter intact with cloudy yellow UOP. Requests that catheter/catheter bag be exchanged prior to discharge. Left note on chart for Dr. Marte and will pass it along. Patient is on a bowel program and is due for BM tonight. Denies any other needs throughout the shift. Mom at bedside throughout the day. Follow up: Continue as per plan of care. Plan to discharge in next 24-48 hours. Overnight trend ox. Follow-up with catheter exchange.
--- NOTE | 2016-11-21 04:14 | NUR ---
Significant Event: A&Ox3, VSS on room air. Over night trendox done tonight. Repositioned per patient request. Patient got O2 sat probe caught on something while he was in his wheel chair. Left pointer finger got pulled back. Bottom joint is bruised and edematous. Called O/[facility], and was told to pass it along to Dr. Marte to assess before discharge to home. Ice placed to site. Large BM this shift. Colon patent, to be changed prior to discharge today. Transfers with full lift. D/C meds on chart. Follow up: D/C to home today
[2016-11-21 04:34] LABS: BLOOD UREA NITROGEN 17 mg/dL (6-24); CALCIUM 8.6 mg/dL (8.5-10.5); CHLORIDE 100 mMol/L (96-110); CO2 26 mMol/L (22-32); CREATININE 0.4 mg/dL (0.6-1.3); ESTIMATED GFR (MDRD EQUATION) > 60; SODIUM 135 mMol/L (135-145)
[2016-11-21] MEDS ORDERED: FLONASE 50 MCG/16 GM NOSE (10:58)
[2016-11-21] MEDS ORDERED: IPRAT-ALBUT 0.5-3 ML INH (10:59)
[2016-11-21] MEDS ORDERED: DELTASONE10 MG PO (11:00)
[2016-11-21] MEDS ORDERED: OCEAN NASAL) (A44 ML NOSE (11:06)
--- NOTE | 2016-11-21 12:22 | NUR ---
Discharge Summary: Patient A/O x 3. Full lift to wheelchair, but then able to move self in wheelchair. Remains at baseline functioning. Vital signs stable: HR 115, RR 20, O2 saturation 95 % on room air, temperature 98.1 F, BP 140/60, and denies pain. Discharge instructions included: medication changes, follow-up appointments with Dr. Kiran and Dr. Marte, and general care instructions. Patient and mother verbalize understanding of all instructions. IV and monitor discontinued. Patient left PCU at 1200 to [facility] entrance and then home to self care. No needs at time of discharge. Edgar RN 11/21/16 1200
== END 2016-11-21 12:00 | disposition disaster alternative care site (69) | DRG 189 ==
LOC: GMED 20:12 → GPCU 22:47
PROVIDERS: Family Medicine; Nurse Practitioner; Obstetrics & Gynecology Obstetrics; ADMIT Family Medicine
DX: J96.01 Acute respiratory failure with hypoxia (principal); G82.50 Quadriplegia, unspecified; J81.0 Acute pulmonary edema; L89.151 Pressure ulcer of sacral region, stage 1; S14.109S Unspecified injury at unspecified level of cervical spinal cord, sequela; Q23.1 Congenital insufficiency of aortic valve; E87.1 Hypo-osmolality and hyponatremia; J98.11 Atelectasis; J20.8 Acute bronchitis due to other specified organisms; E87.70 Fluid overload, unspecified; S12.9XXS Fracture of neck, unspecified, sequela; X58.XXXS Exposure to other specified factors, sequela; Z93.50 Unspecified cystostomy status; K59.00 Constipation, unspecified; I35.1 Nonrheumatic aortic (valve) insufficiency; F41.9 Anxiety disorder, unspecified; I10 Essential (primary) hypertension
CPT/HCPCS: G0378; J1940; J1956; J2060; J2920; J2930; J7030; J7050; J7512

== ENCOUNTER → 2017-03-26 | Outpatient (CLI) | payer MEDICARE, MEDICAID ==
[~2017-03-26] MED LIST changes: +ALBUTEROL2.5 MG/0.5 INH; +DELTASONE10 MG PO; +FLONASE 50 MCG/16 GM NOSE; +IPRAT-ALBUT 0.5-3 ML INH; +LEVAQUIN750 MG PO; +OCEAN NASAL) (A44 ML NOSE; +PHENERGAN-DM120 ML PO
== END | disposition disaster alternative care site (69) ==
LOC: GRAD 12:57
DX: N20.0 Calculus of kidney (principal)